=== PATIENT | male | born 1990 | race African-American/Black ===

== ENCOUNTER 2024-01-25 16:11 | Emergency (ER) | payer SELFPAY ==
[2024-01-25 16:18] VITALS: BP 120/68; PULSE 67; RESP 18; TEMP 98.2; BMI 35.2
[2024-01-25] MEDS ORDERED: ACETAMINOPHEN 500 MG TABLET (FP) ONE (17:10)
[2024-01-25] MEDS ORDERED: IBUPROFEN 600 MG TABLET (FP) PO ONE (17:10)
[2024-01-25] MEDS ORDERED: CEPHALEXIN MONOHYDRATE 500 MG CAPSULE (UD) ONE (17:10)
[2024-01-25] MEDS: CEPHALEXIN MONOHYDRATE 500 MG CAPSULE (UD) PO ONE (17:12)
[2024-01-25] MEDS: IBUPROFEN 600 MG TABLET (FP) PO ONE (17:12)
[2024-01-25] MEDS: ACETAMINOPHEN 500 MG TABLET (FP) PO ONE (17:13)
== END 2024-01-25 17:18 | disposition home or self-care (01) ==
LOC: JERFT 16:11
DX: L03.012 Cellulitis of left finger (principal); L98.9 Disorder of the skin and subcutaneous tissue, unspecified
CPT/HCPCS: 99283-25

== ENCOUNTER 2024-12-17 09:47 | Emergency (ER) | payer OTHER ==
[2024-12-17 09:59] VITALS: BP 129/75; PULSE 82; RESP 18; TEMP 98; BMI 36.6
[2024-12-17] MEDS ORDERED: LIDOCAINE 4% PATCH TP ONE (10:10)
[2024-12-17] MEDS ORDERED: KETOROLAC TROMETHAMINE 30 MG/1 ML VIAL ONE (10:11)
[2024-12-17] MEDS ORDERED: ACETAMINOPHEN 500 MG TABLET (FP) ONE (10:11)
[2024-12-17] MEDS ORDERED: METHOCARBAMOL 500 MG TABLET ONE (10:11)
[2024-12-17] MEDS: METHOCARBAMOL 500 MG TABLET PO ONE (10:23)
[2024-12-17] MEDS: KETOROLAC TROMETHAMINE 30 MG/1 ML VIAL IM ONE (10:23)
[2024-12-17] MEDS: ACETAMINOPHEN 500 MG TABLET (FP) PO ONE (10:23)
[2024-12-17] MEDS: LIDOCAINE 4% PATCH TP ONE (10:24)
[2024-12-17] MEDS ORDERED: oxyCODONE HCL 5 MG TABLET ONE (12:08)
[2024-12-17] MEDS: oxyCODONE HCL 5 MG TABLET PO ONE (12:11)
[2024-12-17] MEDS ORDERED: LIDOCAINE PATCH REMOVAL MC ONE (22:00)
== END 2024-12-17 15:46 | disposition home or self-care (01) ==
LOC: JER 09:47
PROC: 3E0233Z Introduction of Anti-inflammatory into Muscle, Percutaneous Approach (ICD-10-PCS; principal; 2024-12-17)
DX: M51.26 Other intervertebral disc displacement, lumbar region (principal); M54.50 Low back pain, unspecified; R10.30 Lower abdominal pain, unspecified
CPT/HCPCS: 72131-TC; 99285-25